=== PATIENT | female | born 1960 | race Caucasian/White ===

== ENCOUNTER 2016-12-31 16:59 | Emergency (ER) | payer OTHER ==
[~2016-12-31] VITALS: Ht 157.5 cm; Wt 65.0 kg
[~2016-12-31 16:59] MED LIST: AMOX1TAB10 PO; CYCL-319 PO; IBUP-1542 PO; NAPR-260 PO; PSEU120T51 PO; TRAM50TA2 PO
[2016-12-31 17:01] VITALS: Ht 157.5 cm; Wt 65.0 kg
[2016-12-31] MEDS ORDERED: AMO500 PO (17:47)
[2016-12-31] MEDS ORDERED: CETI10CA PO (17:48)
[2016-12-31] MEDS ORDERED: IBUP-1542 PO (17:48)
[2016-12-31] MEDS ORDERED: FLUT9.9S NASAL (17:48)
[2016-12-31] MEDS ORDERED: PRED20TA PO (17:48)
--- NOTE | 2016-12-31 19:32 | ERD ---
ER Documentation Chief Complaint Date/Time DATE: 12/31/16 TIME: 19:[address] intermittent x 1 mos HPI This 56-year-old female who presents to the emergency department today complaining of a sore throat that is been intermittent for the past 2-3 months. Patient states in October she had a cough but that seemed to have resolved. States she is taking NyQuil and Claritin. States that she has seen her primary care doctor and was told everything was fine. States that her ears also feel "plugged up" denies any fevers or chills . ROS All systems reviewed and are negative except as per history of present illness. Medications Home Meds Active Scripts Ibuprofen* (Motrin*) 600 Mg Tab, 600 MG PO Q6, #30 TAB Prov:KIRT NUGENT PA-C 12/31/16 Fluticasone Propionate (Flonase Allergy Relief) 9.9 Ml [place].susp, 2 SPRAY NASAL DAILY, #1 BOTTLE TO EACH NOSTRIL Prov:KIRT NUGENT PA-C 12/31/16 Cetirizine Hcl* (Zyrtec*) 10 Mg Capsule, 10 MG PO DAILY, #10 TAB.CHEW Prov:KIRT NUGENT PA-C 12/31/16 Prednisone* (Prednisone*) 20 Mg Tab, 40 MG PO DAILY for 5 Days, TAB Prov:KIRT NUGENT PA-C 12/31/16 Amoxicillin* (Amoxicillin*) 500 Mg Cap, 500 MG PO TID for 10 Days, CAP Prov:KIRT NUGENT PA-C 12/31/16 Ibuprofen* (Motrin*) 600 Mg Tab, 600 MG PO Q6, #30 TAB Prov:GENEVIEVE VARGAS PA-C 08/29/16 Pseudoephedrine Hcl (Sudafed 12 Hour) 120 Mg Tablet.sa, 120 MG PO BID, #20 Prov:GENEVIEVE VARGAS PA-C 08/29/16 Amoxicillin/Potassium Clav (Amox-Clav 875-125 mg Tablet) 875-125 mg Tab, 1 TAB PO BID for 10 Days, #20 TAB Prov:GENEVIEVE VARGAS PA-C 08/29/16 Cyclobenzaprine Hcl* (Cyclobenzaprine Hcl*) 10 Mg Tablet, 10 MG PO TID for MUSCLE SPASMS, #15 TAB Prov:YESSICA,JISSPAOLA KAISER 07/06/16 Tramadol HCl (Tramadol HCl) 50 Mg Tablet, 50 MG PO Q6 Y for PAIN, #10 TAB Prov:LITZY JUAN JOB 07/06/16 Naproxen* (Naprosyn*) 500 Mg Tablet, 500 MG PO BID Y for PAIN AND/OR INFLAMMATION, #20 TAB Prov:LITZY JUAN JOB 07/06/16 Allergies Allergies: Coded Allergies: No Known Allergy (Unverified , 07/06/16) PMhx/Soc History of Surgery: No Anesthesia Reaction: No Hx Neurological Disorder: No Hx Respiratory Disorders: No Hx Cardiac Disorders: No Hx Psychiatric Problems: No Hx Miscellaneous Medical Probl: No Hx Alcohol Use: Yes (OOC) Hx Substance Use: No Hx Tobacco Use: No Physical Exam Vitals Vital Signs Date Time Temp Pulse Resp B/P Pulse Ox O2 Delivery O2 Flow Rate FiO2 12/31/16 17:01 98.1 80 20 157/60 99 Physical Exam Const: Pleasant, no acute Head: Atraumatic Eyes: Normal Conjunctiva ENT: Ears TMs normal. Nose no drainage. Throat with mild erythema no exudate. Tenderness palpation left side submandibular with enlargement of submandibular lymph node Neck: Full range of motion..~ No meningismus. Resp: Clear to auscultation bilaterally Cardio: Regular rate and rhythm, no murmurs Abd: Soft, non tender, non distended. Normal bowel sounds Skin: No petechiae or rashes Neur: Awake and alert Psych: Normal Mood and Affect Procedures/MDM This a 56-year-old female presents the emergency department today complaining of sore throat that is been intermittent for the past 2-3 months. Patient was seen in the [facility] area of the emergency department. She is afebrile and otherwise well-appearing. her oxygen saturation 99%. Patient symptoms at this time is consistent with sore throat. Patient has not tried a course of antibiotics and given the length and duration of her symptoms I will give her patient for amoxicillin to treat possible strep pharyngitis although my suspicion is that her sore throat is more viral related. Patient did have some enlargement of the left side of 1 of her submandibular lymph nodes and therefore I also gave her prescription for prednisone. Do not feel the patient requires further laboratory workup or imaging at this time. Patient was also complaining of some plugged up ears and therefore she was also given a prescription for Zyrtec and Flonase. I have low suspicion for peritonsillar abscess, retropharyngeal abscess, otitis media, PNA, sinusitis, abscess, meningitis, sepsis, or other acute infectious bacterial process. At this time the patient is stable for discharge and outpatient management. They should follow up with their PCP in the next 1-2. They may return to the emergency department sooner if symptoms persist or worsen. Patient understood and agreed with the plan. Departure Diagnosis: Primary Impression: Sore throat Condition: Fair Patient Instructions: Self-Care for Sore Throats Referrals: your PCP Additional Instructions: Llame al doctor NEPTALI y aleksandra ebonie MAURI PARA DENTRO DE 1-2 MICHELLE.Dgale a la secretaria que nosotros le instruimos hacer esta mauri.Avise o llame si braun condicin se empeora antes de la mauri. Regresa aqui si peor o no mejor. Take antibiotics as prescribed Take prednisone as prescribed to help decrease swelling Take Motrin or Tylenol for pain Take Flonase and Zyrtec to help with nasal congestion and earache KIRT NUGENT PA-C December 31, 2016 19:32
== END 2016-12-31 17:54 | disposition home or self-care (01) ==
LOC: E/R 16:59
DX: J02.9 Acute pharyngitis, unspecified (principal)
CPT/HCPCS: 99284

== ENCOUNTER 2017-10-29 17:23 | Emergency (ER) | END 2017-10-29 17:52 | disposition home or self-care (01) ==

== ENCOUNTER 2018-09-05 16:05 | Emergency (ER) | payer OTHER ==
[~2018-09-05] VITALS: Ht 157.5 cm; Wt 58.1 kg
[~2018-09-05 16:05] MED LIST changes: +AMOX500C2 PO; +AZIT250T PO; +CETI10CA PO; -CYCL-319 PO; +CYCL10TA7 PO; +FLUT9.9S NASAL; +GUAI-173 PO; +MED4DP PO; -NAPR-260 PO; +NAPR-985 PO; +PRED20TA PO; +PSEU120T12 PO; -PSEU120T51 PO
[2018-09-05 16:10] VITALS: BP 150/72; PULSE 64; RESP 16; Ht 157.5 cm; Wt 58.1 kg
--- NOTE | 2018-09-05 17:08 | ERD ---
ER Documentation Chief Complaint Chief Complaint COUGH X 5 DAYS. HPI 58-year-old female, previously healthy, presents the emergency department, complaining of upper respiratory symptoms for 5 days, including cough, runny nose and chest congestion. The patient denies fever, no chills, no chest pain, no shortness of breath. She has been taking [id number] medication with mild improvement of the symptoms. The patient is requesting a prescription for antibiotics today. ROS All systems reviewed and are negative except as per history of present illness. Medications Home Meds Active Scripts Guaifenesin* (Tussin*) 100 Mg/5 Ml Syrup, 200 MG PO Q6 PRN for COUGH for 3 Days, ML Prov:RAS BLANCA 10/29/17 Methylprednisolone* (Medrol* DOSE PACK) 4 Mg/Dose-Pack Tab.ds.pk, 4 MG PO . DIRECTED for 6 Days, PACKET Prov:RAS BLANCA 10/29/17 Azithromycin* (Zithromax*) 250 Mg Tablet, 250 MG PO .ZPACK DIRECTED, #6 TAB TAKE 500 MG (2 TABS) THE FIRST DAY THEN 250 MG (1 TAB) DAYS 2-5 Prov:RAS BLANCA 10/29/17 Ibuprofen* (Motrin*) 600 Mg Tab, 600 MG PO Q6, #30 TAB Prov:KIRT NUGENT PA-C 12/31/16 Fluticasone Propionate (Flonase Allergy Relief) 9.9 Ml [place].susp, 2 SPRAY NASAL DAILY, #1 BOTTLE TO EACH NOSTRIL Prov:KIRT NUGENT PA-C 12/31/16 Cetirizine Hcl* (Zyrtec*) 10 Mg Capsule, 10 MG PO DAILY, #10 TAB.CHEW Prov:KIRT NUGENT PA-C 12/31/16 Prednisone* (Prednisone*) 20 Mg Tab, 40 MG PO DAILY for 5 Days, TAB Prov:KIRT NUGENT PA-C 12/31/16 Amoxicillin* (Amoxicillin*) 500 Mg Cap, 500 MG PO TID for 10 Days, CAP Prov:KIRT NUGENT PA-C 12/31/16 Ibuprofen* (Motrin*) 600 Mg Tab, 600 MG PO Q6, #30 TAB Prov:GENEVIEVE VARGAS PA-C 08/29/16 Pseudoephedrine Hcl (Sudafed 12 Hour) 120 Mg Tablet.sa, 120 MG PO BID, #20 Prov:GENEVIEVE VARGAS ROSSANAJunIvon 08/29/16 Amoxicillin/Potassium Clav (Amox-Clav 875-125 mg Tablet) 875-125 mg Tab, 1 TAB PO BID for 10 Days, #20 TAB Prov:GENEVIEVE VARGAS JOB 08/29/16 Cyclobenzaprine Hcl* (Cyclobenzaprine Hcl*) 10 Mg Tablet, 10 MG PO TID for MUSCLE SPASMS, #15 TAB Prov:YESSICALITZY PA-C 07/06/16 Tramadol HCl (Tramadol HCl) 50 Mg Tablet, 50 MG PO Q6 PRN for PAIN, #10 TAB Prov:YESSICALITZY PA-C 07/06/16 Naproxen* (Naprosyn*) 500 Mg Tablet, 500 MG PO BID PRN for PAIN AND/OR INFLAMMATION, #20 TAB Prov:YESSICALITZY PA-C 07/06/16 Allergies Allergies: Coded Allergies: No Known Allergy (Unverified , 07/06/16) PMhx/Soc Medical and Surgical Hx: pt denies Medical Hx, pt denies Surgical Hx History of Surgery: No Anesthesia Reaction: No Hx Neurological Disorder: No Hx Respiratory Disorders: No Hx Cardiac Disorders: No Hx Psychiatric Problems: No Hx Miscellaneous Medical Probl: No Hx Alcohol Use: Yes (OOC) Hx Substance Use: No Hx Tobacco Use: No Smoking Status: Never smoker FmHx Family History: No diabetes, No coronary disease Physical Exam Vitals Vital Signs Date Temp Pulse Resp B/P (MAP) Pulse Ox O2 O2 Flow FiO2 Time Delivery Rate 09/05/18 96.3 64 16 150/72 99 16:10 (98) Physical Exam Const: No acute distress Head: Atraumatic Eyes: Normal Conjunctiva ENT: Normal External Ears, Nose and Mouth. Neck: Full range of motion. No meningismus. Resp: Clear to auscultation bilaterally Cardio: Regular rate and rhythm, no murmurs Abd: Soft, non tender, non distended. Normal bowel sounds Skin: No petechiae or rashes Back: No midline or flank tenderness Ext: No cyanosis, or edema Neur: Awake and alert Psych: Normal Mood and Affect Procedures/MDM Vital signs stable, no respiratory distress. Differential diagnosis include but not limited to: Respiratory infection bacterial/viral/fungal. Croup, bronchiolitis, pneumonitis, allergies, GERD. Less likely foreign body aspiration, cardiac related. Physical examination and clinical presentation consistent most likely with viral infection with early superimposed bacterial infection. During the ED course the patient remained stable, no new complaints. Treatment options and clinical impression discussed with the patient who agrees with management. The patient is stable to be treated outpatient and will be discharged home with a Rx for amoxicillin, pro-air and ibuprofen. Antibiotics not indicated at this time. The patient is requesting a prescription for antibiotics, a prescription will be given with instructions to continue symptomatic and conservative management for 3 days, trying to avoid the use of unnecessary antibiotics due to the possible side effects and complications. if there is no improvement of the symptoms in 72 hours, okay to start antibiotics. Some side effects of prescribed medications (headache, rash, nausea, vomiting, diarrhea, interactions with other medications) were reviewed. The patient needs to follow up with the primary care provider in the next 48h. If symptoms persist, worsen or new symptoms develop, then patient should return to the ED immediately. Disclaimer: Inadvertent spelling and grammatical errors are likely due to EHR/dictation software use and do not reflect on the overall quality of patient care. Also, please note that the electronic time recorded on this note does not necessarily reflect the actual time of the patient encounter. Departure Diagnosis: Primary Impression: Cough Condition: Stable Additional Instructions: Muchas hernan por [facility] para braun servicio. Esperamos que en braun visita a la arnold de emergencia braun problema medico haya sido solucionado y que se sienta mucho mejor. Para estar seguros que braun mejoria sigue en proceso, le pedimos el favor de hacer ebonie kyrie de seguimiento medico con braun doctor primario en los proximos 2-4 zhao. Lleve con usted estos documentos y las medicinas recetadas. Si evangelina sintomas empeoran, NO SE ESPERE, por favor regrese a arnold de emergencia INMEDIATAMENTE. En kristopher que usted no tenga un mdico de atencin primaria: Llame al mdico o clnica comunitaria de referencia que aparece abajo candace las horas de consultorio para hacer ebonie kyrie para que le vean. CLINICAS: [facility] [phone] [address] [facility] [phone] [address] [facility] [phone] [address] [facility] [phone] [place] [address] [phone] [facility]. [phone] CARINA ECHEVERRIA MD Sep 05, 2018 17:08
[2018-09-05] MEDS ORDERED: ALBU8.5H8 INH (17:09)
[2018-09-05] MEDS ORDERED: AMOX500C2 PO (17:09)
[2018-09-05] MEDS ORDERED: GUAI473L22 PO (17:09)
== END 2018-09-05 17:22 | disposition home or self-care (01) ==
LOC: FTE 16:05
DX: R05 Cough (principal)
CPT/HCPCS: 99283

== ENCOUNTER 2019-02-22 16:26 | Emergency (ER) | payer OTHER ==
[~2019-02-22] VITALS: Ht 160 cm; Wt 56.7 kg
[~2019-02-22 16:26] MED LIST changes: +ALBU8.5H8 INH; +GUAI473L22 PO
[2019-02-22 16:30] VITALS: BP 129/63; PULSE 83; RESP 18; Ht 160 cm; Wt 56.7 kg
[2019-02-22] MEDS ORDERED: KETOROLAC 60 MG INJ IM STA (17:17)
[2019-02-22] MEDS ORDERED: DEXAMETHASONE 10 MG/ML 1 ML INJ IM ONE (17:30)
[2019-02-22] MEDS ORDERED: CYCLOBENZAPRINE 10 MG TAB PO ONE (17:30)
[2019-02-22] MEDS ORDERED: PRED20TA PO (18:49)
[2019-02-22] MEDS ORDERED: IBUP-1542 PO (18:49)
[2019-02-22] MEDS ORDERED: CYCL10TA7 PO (18:49)
--- NOTE | 2019-02-22 18:54 | ERD ---
ER Documentation Chief Complaint Chief Complaint left hip pain x 9 days HPI History of Present Illness: 58-year-old male who is accompanied by her daughter coming in today with complaint of left-sided hip pain that is been present for 7 to 10 days. Denies a past medical history. Reports similar symptoms a few year s ago. Denies injury. Denies back pain. At home pharmacological/nonpharmacological treatment for symptoms: Denies social concerns; Denies recent foreign travel ROS All systems reviewed and are negative except as per history of present illness. Medications Home Meds Active Scripts Ibuprofen* (Motrin*) 600 Mg Tab, 600 MG PO Q6H PRN for PAIN AND/OR INFLAMMATION, #30 TAB Prov:LONNIE MCKEON NP 02/22/19 Cyclobenzaprine Hcl* (Cyclobenzaprine Hcl*) 10 Mg Tablet, 10 MG PO TID for MUSCLE SPASM/SCIATICA FLAREUP, #15 TAB Prov:LONNIE MCKEON NP 02/22/19 Prednisone* (Prednisone*) 20 Mg Tab, 40 MG PO DAILY for SCIATICA NERVE FLAREUP for 4 Days, TAB Prov:LONNIE MCKEON NP 02/22/19 Guaifenesin-Codeine Phosphate* (Guaifenesin* AC Cough Syrup) 473 Ml Liquid, 5 ML PO Q4H PRN for COUGH, #60 ML Prov:CARINA SAEED MD 09/05/18 Albuterol Sulfate* (Proair HFA*) 8.5 Gm Hfa.aer.ad, 2 PUFF INH Q4H PRN for WHEEZING AND SOB, #1 INHALER Prov:CARINA SAEED MD 09/05/18 Amoxicillin* (Amoxicillin*) 500 Mg Cap, 500 MG PO TID for 7 Days, CAP Prov:CARINA SAEED MD 09/05/18 Guaifenesin* (Tussin*) 100 Mg/5 Ml Syrup, 200 MG PO Q6 PRN for COUGH for 3 Days, ML Prov:RAS BLANCA 10/29/17 Methylprednisolone* (Medrol* DOSE PACK) 4 Mg/Dose-Pack Tab.ds.pk, 4 MG PO . DIRECTED for 6 Days, PACKET Prov:RAS BLANCA 10/29/17 Azithromycin* (Zithromax*) 250 Mg Tablet, 250 MG PO .ZPACK DIRECTED, #6 TAB TAKE 500 MG (2 TABS) THE FIRST DAY THEN 250 MG (1 TAB) DAYS 2-5 Prov:RAS BLANCA 10/29/17 Ibuprofen* (Motrin*) 600 Mg Tab, 600 MG PO Q6, #30 TAB Prov:KIRT NUGENT PA-C 12/31/16 Fluticasone Propionate (Flonase Allergy Relief) 9.9 Ml [place].susp, 2 SPRAY NASAL DAILY, #1 BOTTLE TO EACH NOSTRIL Prov:KIRT NUGENT PA-C 12/31/16 Cetirizine Hcl* (Zyrtec*) 10 Mg Capsule, 10 MG PO DAILY, #10 TAB.CHEW Prov:KIRT NUGENT PA-C 12/31/16 Prednisone* (Prednisone*) 20 Mg Tab, 40 MG PO DAILY for 5 Days, TAB Prov:KIRT NUGENT PA-C 12/31/16 Amoxicillin* (Amoxicillin*) 500 Mg Cap, 500 MG PO TID for 10 Days, CAP Prov:KIRT NUGENT PA-C 12/31/16 Ibuprofen* (Motrin*) 600 Mg Tab, 600 MG PO Q6, #30 TAB Prov:GENEVIEVE VARGAS PA-C 08/29/16 Pseudoephedrine Hcl (Sudafed 12 Hour) 120 Mg Tablet.sa, 120 MG PO BID, #20 Prov:GENEVIEVE VARGAS PA-C 08/29/16 Amoxicillin/Potassium Clav (Amox-Clav 875-125 mg Tablet) 875-125 mg Tab, 1 TAB PO BID for 10 Days, #20 TAB Prov:GENEVIEVE VARGAS PA-C 08/29/16 Cyclobenzaprine Hcl* (Cyclobenzaprine Hcl*) 10 Mg Tablet, 10 MG PO TID for MUSCLE SPASMS, #15 TAB Prov:LITZY JUAN PA-C 07/06/16 Tramadol HCl (Tramadol HCl) 50 Mg Tablet, 50 MG PO Q6 PRN for PAIN, #10 TAB Prov:LITZY JUAN PA-C 07/06/16 Naproxen* (Naprosyn*) 500 Mg Tablet, 500 MG PO BID PRN for PAIN AND/OR INFLAMMATION, #20 TAB Prov:LITZY JUAN PA-C 07/06/16 Allergies Allergies: Coded Allergies: No Known Allergy (Unverified , 07/06/16) PMhx/Soc History of Surgery: Yes (TUBAL LIGATION) Anesthesia Reaction: No Hx Neurological Disorder: No Hx Respiratory Disorders: No Hx Cardiac Disorders: No Hx Psychiatric Problems: No Hx Miscellaneous Medical Probl: No Hx Alcohol Use: No Hx Substance Use: No Hx Tobacco Use: No Smoking Status: Never smoker Physical Exam Vitals Vital Signs Date Temp Pulse Resp B/P (MAP) Pulse Ox O2 O2 Flow FiO2 Time Delivery Rate 02/22/19 97.9 83 18 129/63 97 16:30 (85) Physical Exam Const: No acute distress, afebrile Head: Atraumatic Eyes: Normal Conjunctiva ENT: Normal External Ears, Nose and Mouth. Neck: Full range of motion. No meningismus. Resp: Clear to auscultation bilaterally Cardio: Regular rate and rhythm, no murmurs Abd: Soft, non tender, non distended. No guarding, no masses, no rigidity Skin: No petechiae or rashes Back: No midline or flank tenderness Ext: No cyanosis, or edema; tenderness to palpation muscle of left hip extending to posterior of left lower extremity Neur: Awake and alert x3, speaking in clear sentences, no focal deficits or facial asymmetry Psych: Normal Mood and Affect Results 24 hrs Current Medications Medications Dose Sig/Simone Start Time Status Last (Trade) Ordered Route PRN Stop Time Admin Dose Reason Admin Ketorolac 60 mg ONCE STAT 02/22/19 DC 02/22/19 Tromethamine IM 17:17 17:56 (Toradol) 02/22/19 17:19 8 mg ONCE ONCE 02/22/19 DC 02/22/19 Dexamethasone IM 17:30 17:56 (Decadron) 02/22/19 17:31 10 mg ONCE ONCE 02/22/19 DC 02/22/19 Cyclobenzapri PO 17:30 17:55 ne HCl 02/22/19 17:31 (Flexeril) Procedures/MDM ED course includes a thorough examination and history. Medications: Ketorolac, cyclobenzaprine, prednisone Imaging: Did not feel imaging was warranted Labs: Did not feel imaging was warranted Low suspicion for life-threatening medical emergency. Low suspicion for neurological emergency, no signs of neuro deficits. Low suspicion for cauda equina, acute fracture, dislocation, spinal hematoma. Otherwise healthy patient presenting with constellation of symptoms likely representing uncomplicated sciatica as characterized by history, physical exam findings. Patient reassessment 1845: Daughter still present with patient. Patient reporting decrease in pain after medication administration, no physical signs of pain. Daughter states that patient uses her body while at work a lot so that is probably why she is having this increased pain. Patient hemodynamically stable. No respiratory distress, otherwise relatively well appearing and nontoxic. Disposition given. Patient educated on diagnoses, prescriptions, follow-up care, return precautions. Strict return precautions given for worsening condition; questions answered discharge. Verbalizes understanding of discharge instructions. Disposition for discharge with followup in 2 days with PCP/clinic. Departure Diagnosis: Primary Impression: Left sided sciatica Condition: Stable Patient Instructions: Understanding Sciatica, Back Pain W/ Sciatica Referrals: [facility] YOU HAVE RECEIVED A MEDICAL SCREENING EXAM AND THE RESULTS INDICATE THAT YOU DO NOT HAVE A CONDITION THAT REQUIRES URGENT TREATMENT IN THE EMERGENCY DEPARTMENT. FURTHER EVALUATION AND TREATMENT OF YOUR CONDITION CAN WAIT UNTIL YOU ARE SEEN IN YOUR DOCTORS OFFICE WITHIN THE NEXT 1-2 DAYS. IT IS YOUR RESPONSIBILITY TO MAKE AN APPOINTMENT FOR FOLOW-UP CARE. IF YOU HAVE A PRIMARY DOCTOR --you should call your primary doctor and schedule an appointment IF YOU DO NOT HAVE A PRIMARY DOCTOR YOU CAN CALL OUR PHYSICIAN REFERRAL HOTLINE AT IF YOU CAN NOT AFFORD TO SEE A PHYSICIAN YOU CAN CHOSE FROM THE FOLLOWING [facility] [address] [facility]. [facility] [address] [employer] [facility] [facility] [address] [facility]. [facility] [address] [facility] [facility] [address] [facility]. [facility]. [address] [facility] YOU HAVE RECEIVED A MEDICAL SCREENING EXAM AND THE RESULTS INDICATE THAT YOU DO NOT HAVE A CONDITION THAT REQUIRES URGENT TREATMENT IN THE EMERGENCY DEPARTMENT. FURTHER EVALUATION AND TREATMENT OF YOUR CONDITION CAN WAIT UNTIL YOU ARE SEEN IN YOUR DOCTORS OFFICE WITHIN THE NEXT 1-2 DAYS. IT IS YOUR RESPONSIBILITY TO MAKE AN APPOINTMENT FOR FOLOW-UP CARE. IF YOU HAVE A PRIMARY DOCTOR --you should call your primary doctor and schedule and appointment IF YOU DO NOT HAVE A PRIMARY DOCTOR YOU CAN CALL OUR PHYSICIAN REFERRAL HOTLINE AT . IF YOU CAN NOT AFFORD TO SEE A PHYSICIAN YOU CAN CHOSE FROM THE FOLLOWING [facility] INSTITUTIONS: [facility] [address] [place] [address] [facility] [address] [place] [address] [facility] [address] [place] [address] Additional Instructions: Thank you very much for allowing us to participate in your care. Your health and safety is our top priority at [facility]. It is important to read all discharge instructions and education provided in your discharge packet. Call your primary care doctor TOMORROW for an appointment during the next 2-4 days and bring all the information and medications prescribed. Have prescriptions filled and follow precisely the directions on the label. --Ibuprofen is a medication that will help with pain/inflammation. At the dosage of 600 to 800 mg, this will help with inflammation/swelling. Take this medication as prescribed. --Prednisone is a steroid, which decreases inflammation; uses medication every morning with breakfast to decrease inflammation associated with your sciatica nerve flareup --Cyclobenzaprine as a muscle relaxer; take this medication daily as prescribed for the next week to help with your muscle spasm. Do not operate heavy mac hinery while taking this medication; It may make you drowsy. If the symptoms get worse and your provider is unavailable, return to the Emergency Department immediately. LONNIE MCKEON NP Feb 22, 2019 18:54
== END 2019-02-22 18:56 | disposition home or self-care (01) ==
LOC: FTE 16:26
DX: M54.32 Sciatica, left side (principal)
CPT/HCPCS: 96372; J1100; J1885; Z7502; Z7610